=== PATIENT | male | born 1965 | race Caucasian/White ===

== ENCOUNTER 2016-06-12 05:20 | Emergency (ER) | payer BC, OTHER ==
[~2016-06-12] VITALS: Ht 182.9 cm; Wt 89.8 kg
[2016-06-12] MEDS ORDERED: LIPITOR 20 MG T20 M1 PO (05:27)
[2016-06-12] MEDS ORDERED: ASPIR 8181 MG PO (05:27)
[2016-06-12] MEDS ORDERED: CLEOCIN HCL150 MG PO (05:28)
[2016-06-12 05:41] LABS: HEMATOCRIT 44.7 % (42.0-52.0); HEMOGLOBIN 15.1 gm/dL (14.0-18.0); MCH 31.7 pg (26.0-34.0); MCHC 33.8 % (28.0-37.0); MCV 93.9 fL (80.0-100.0); PLATELET COUNT 183 thou/uL (150-400); RBC 4.76 mil/uL (4.50-6.00); RDW 12.8 % (10.5-14.5); WBC 8.6 thou/uL (4.0-11.0)
[2016-06-12 05:56] LABS: ALBUMIN 3.9 g/dL (3.4-5.0); CREATININE 1.5 mg/dL (0.6-1.3); POTASSIUM 3.8 mmol/L (3.5-5.1); TOTAL BILIRUBIN 0.6 mg/dL (<0.1-1.0); TOTAL PROTEIN 7.5 g/dL (6.4-8.2)
[2016-06-12 06:01] LABS: MANUAL DIFF YES
[2016-06-12] MEDS ORDERED: ZOFRAN ODT4 MG DISSOLVE (07:54)
[2016-06-12] MEDS ORDERED: TRAMADOL 50 MG50 MG PO (07:54)
[2016-06-12 08:09] VITALS: BP 122/73
[2016-06-12 08:10] LABS: ABSOLUTE NEUTROPHILS 7.6 thou/uL (1.4-8.2); POIKILOCYTOSIS SLIGHT; TOTAL CELL COUNT 100
== END 2016-06-12 08:10 | disposition home or self-care (01) ==
LOC: ER 05:20
PROVIDERS: Emergency Medicine
DX: K20.8 Other esophagitis (principal); Z88.0 Allergy status to penicillin; Z91.013 Allergy to seafood

== ENCOUNTER → 2019-11-08 | Outpatient (CLI) | payer BC, OTHER ==
[~2019-11-08] MED LIST: ASPIR 8181 MG PO; CLEOCIN HCL150 MG PO; LIPITOR 20 MG T20 M1 PO; TRAMADOL 50 MG50 MG PO; ZOFRAN ODT4 MG DISSOLVE
== END ==
LOC: LAB 10:20
PROVIDERS: ATTEND Family Medicine
DX: Z03.818 Encounter for observation for suspected exposure to other biological agents ruled out (principal)